=== PATIENT | female | born 1935 | race Caucasian/White ===

== ENCOUNTER 2017-10-24 13:07 | Inpatient (IN) | payer OTHER, MEDICARE ==
[~2017-10-24] VITALS: Ht 172.7 cm; Wt 60.8 kg
--- NOTE | ~2017-10-24 | HC ---
[facility] [place] [address] CONSULTATION Name: LUIS ANTONIO FARIAS Room #: 401-I [facility] IN ..#: [id number] Admission: 10/24/17 Attend Phys: Hailee De Los Santos MD Discharge: 10/27/17 Date of : 33 Report #: [id number] THIS REPORT FOR: //name// CC: Najma De Los Santos REASON FOR CONSULTATION: Left tibial plateau fracture. HISTORY OF PRESENT ILLNESS: The patient is an 82-year-old female who was on a piece of exercise equipment when she got caught and fell and sustained an injury to her left knee. She denied loss of consciousness, reports only left knee pain. REVIEW OF SYSTEMS: MUSCULOSKELETAL: See HPI. NEUROLOGIC: Denies numbness or tingling in her extremities. PAST MEDICAL HISTORY: Essentially negative. ALLERGIES: No known drug allergies. MEDICATIONS: The patient reports none. PAST SURGICAL HISTORY: Cholecystectomy, appendectomy, history of a left ankle fracture, tonsils and adenoids and cataracts. SOCIAL HISTORY: She lives with a female friend, currently does not smoke and no alcohol use. Prior to that, she did not use any ambulatory aids. LABORATORY STUDIES: Done on 10/25/2017 showed white blood cell count 7.4, hemoglobin 12.8, hematocrit 37.8, platelet count 200. INR is 1. Chemistry is grossly normal. On 10/24/2017, she had a vitamin D level, which showed a low vitamin D at 18.6. PHYSICAL EXAMINATION: GENERAL: She is alert and oriented, interacts appropriately. She is well-developed, well-nourished female in no acute distress. She has a normal affect. VITAL SIGNS: Most recent vital signs show temperature of 36.2, heart rate is 88, respiratory rate 15, blood pressure 134/77 and pulse oximetry is 94% on room air. BILATERAL UPPER EXTREMITIES: Skin is clean, dry and intact. She has brisk capillary refill. Sensation is intact to light touch throughout. She is able to make full fist. Full extension, full wrist, forearm, elbow and shoulder functional motion is not full and there is no tenderness to palpation throughout the entire bilateral upper extremities including the sternum and clavicles, [address] [address] CONSULTATION Name: LUIS ANTONIO FARIAS Room #: [address] [place] [address] [place] [facility].#: [id number] Admission: 10/24/17 Attend Phys: Hailee De Los Santos MD Discharge: 10/27/17 Date of : 33 Report #: [id number] shoulders, arms, elbows, forearms, wrists and hands. There is no pain with range of motion. Skin is clean, dry and intact. RIGHT LOWER EXTREMITY: Sensation is intact to light touch throughout. She has brisk capillary refill. EHL, FHL, dorsiflexion and plantar flexion are intact. She has no pain with range of motion of the right hip, knee, ankle or foot. No tenderness to palpation throughout the right thigh, knee, leg, ankle or foot. LEFT LOWER EXTREMITY: Sensation is intact to light touch throughout. She has brisk capillary refill. She has a moderate amount of edema diffusely at the knee with tenderness at the lateral tibial plateau. No significant anterior tenderness. She does have a moderate joint effusion without signs of infection. Skin is clean, dry and intact. She has pain with attempted straight leg raise. There is no pain with hip range of motion or ankle range of motion and no tenderness to the thigh, distal leg, ankle or foot. RADIOGRAPHS: AP, lateral and oblique of the left knee show what appears to be a possibly depressed lateral tibial plateau fracture. IMPRESSION AND PLAN: Left lateral tibial plateau fracture. Continue her in her knee immobilizer. She is to be nonweightbearing on the left lower extremity. We will order a CAT scan to evaluate articular displacement for a possible need for surgery. If this is done, this will most likely be done on Friday. Questions were encouraged and answered to the best of my ability. <ELECTRONICALLY SIGNED> By: Michaela Mccullough MD 11/06/17 1524 1201 1849 Michaela Mccullough MD /nt
--- NOTE | ~2017-10-24 | D ---
[facility] [place] [address] DISCHARGE SUMMARY Name: LUIS ANTONIO FARIAS Óscar Room #: 401-I [facility] IN M.R.#: [id number] Admission: 10/24/17 Attend Phys: Hailee De Los Santos MD Discharge: 10/27/17 Date of : 33 Report #: [id number] THIS REPORT FOR: //name// CC: Najma Enciso Hailee De Los Santos DATE OF SERVICE: 10/27/2017 HISTORY OF PRESENT ILLNESS: The patient is an 82-year-old healthy female with no major medical problems, who fractured her left tibial plateau while she was exercising. Please refer to the admission H and P for details. HOSPITALIZATION COURSE: The patient was hospitalized. She was treated symptomatically. Orthopedic surgeon was consulted. The patient had brace applied. No surgery was performed. Physical therapy was recommended. The patient's hospital stay was uneventful. passenger service manager is involved. Given the fact that the patient needs significant care, she will be transferred to the shelter facility until she is able to go home. Currently, the patient's condition is acceptable as documented in the patient's chart. DISCHARGE DIAGNOSIS: Traumatic left tibial plateau fracture, nondisplaced. Managed conservatively. DISCHARGE MEDICATIONS: Please refer to the medication reconciliation list. FOLLOWUP PLAN: 1. Follow up with orthopedic surgeon as advised. 2. Follow up with primary care physician as planned. DISPOSITION: The patient is discharged to the shelter facility. <ELECTRONICALLY SIGNED> By: Hailee De Los Santos MD 10/27/17 1906 1201 1242 Hailee De Los Santos MD /nt
--- NOTE | ~2017-10-24 | EKG ---
[address] [address] ELECTROCARDIOGRAM REPORT Name: LUIS ANTONIO FARIAS Room #: 401-I ADM IN .R.#: [id number] Admission: 10/24/17 Attend Phys: Hailee De Los Santos MD Discharge: Date of : 33 Report #: [id number] THIS REPORT FOR: //name// [facility] ED Test Date: 2017-10-24 Test Time: 16:03:38 Pat Name: LUIS ANTONIO FARIAS Department: Room: [facility] Gender: F Anthropology Department Chair: scott : 1935 Requested By: Brad Nettles Order Number: [id number] MD: Glenn Morales Measurements Intervals [place] Rate: 84 P: 6 W[place]: 139 QRS: 5 QRSD: 76 T: 32 QT: 397 QTc: 470 Interpretive Statements Sinus rhythm Atrial premature complex Compared to ECG 04/13/2016 04:10:00 Atrial premature complex(es) now present Electronically Signed On 10-26-2017 15:17:37 TRAINING OFFICER by Glenn Morales [email or web address] <ELECTRONICALLY SIGNED> By: Glenn Morales MD, [facility] 10/26/17 1517 1603 160 Glenn Morales MD, [facility] /EPI
[~2017-10-24 13:07] MED LIST: AMOXICILLIN 50500 MG PO; CALCIUM 600 +1 EAC1 PO; CARBAMAZEPINE400 M1 PO; GABAPENTIN; KEFLEX500 MG PO; LISINOPRIL; LOVASTATIN; NORCO 10-325 T1 EACH PO; NORCO 5-325 TA1 EACH PO; PERCOCET PO; PREDNISONE 5 MG5 MG PO; TRAMADOL 50 MG50 MG PO; XANAX 0.25 MG0.25 MG PO
[2017-10-24 13:08] VITALS: BP 171/91
[2017-10-24 15:17] LABS: ABSOLUTE NEUTROPHILS 4.3 thou/uL (1.4-8.2); BASOPHILS 0.8 % (0.0-2.0); EOSINOPHILS 0.5 % (0.0-3.0); HEMATOCRIT 39.9 % (37.0-47.0); LYMPHOCYTES 14.7 % (24.0-44.0); MCH 33.6 pg (26.0-34.0); MCHC 35.2 g/dL (28.0-37.0); MCV 95.6 fL (80.0-100.0); MONOCYTES 6.9 % (1.0-8.0); PLATELET COUNT 192 thou/uL (150-400); POLYS 77.1 % (36.0-66.0); RBC 4.17 mil/uL (4.20-5.00); RDW 13.5 % (10.5-14.5); WBC 5.6 thou/uL (4.0-11.0)
[2017-10-24 15:25] LABS: CALCIUM 9.1 mg/dL (8.5-10.1); CREATININE 0.8 mg/dL (0.6-1.0); POTASSIUM 4.6 mmol/L (3.5-5.1)
[2017-10-24 15:41] LABS: APTT 25.8 Seconds (24.5-32.8); PROTIME 10.6 Seconds (9.3-11.4)
[2017-10-24 17:20] VITALS: BP 156/87
[2017-10-24 18:02] VITALS: BP 132/80
[2017-10-24 20:09] VITALS: BP 100/557; BP 100/57
[2017-10-25] VITALS: BP 124/79
[2017-10-25 04:00] VITALS: BP 145/85
[2017-10-25 06:27] LABS: ABSOLUTE NEUTROPHILS 5.2 thou/uL (1.4-8.2); BASOPHILS 0.7 % (0.0-2.0); HEMATOCRIT 37.8 % (37.0-47.0); HEMOGLOBIN 12.8 gm/dL (12.0-15.0); LYMPHOCYTES 17.7 % (24.0-44.0); MCH 32.6 pg (26.0-34.0); MONOCYTES 11.1 % (1.0-8.0); PLATELET COUNT 200 thou/uL (150-400); POLYS 69.5 % (36.0-66.0); RBC 3.94 mil/uL (4.20-5.00); RDW 14.1 % (10.5-14.5); WBC 7.4 thou/uL (4.0-11.0)
[2017-10-25 06:44] LABS: CALCIUM 8.8 mg/dL (8.5-10.1); CREATININE 0.7 mg/dL (0.6-1.0); POTASSIUM 3.9 mmol/L (3.5-5.1)
[2017-10-25 07:18] VITALS: BP 134/77
[2017-10-25 15:52] VITALS: BP 105/74
[2017-10-25 18:55] VITALS: BP 99/50
[2017-10-25 19:00] VITALS: BP 91/52
[2017-10-26 03:20] VITALS: BP 112/70
[2017-10-26 03:44] LABS: HEMATOCRIT 35.2 % (37.0-47.0); HEMOGLOBIN 11.9 gm/dL (12.0-15.0); MCH 32.9 pg (26.0-34.0); MCHC 33.7 g/dL (28.0-37.0); MCV 97.7 fL (80.0-100.0); RBC 3.6 mil/uL (4.20-5.00); RDW 14.4 % (10.5-14.5); WBC 6.6 thou/uL (4.0-11.0)
[2017-10-26 04:00] LABS: ALBUMIN 2.9 g/dL (3.4-5.0); CALCIUM 8.4 mg/dL (8.5-10.1); CREATININE 0.8 mg/dL (0.6-1.0); POTASSIUM 3.8 mmol/L (3.5-5.1); TOTAL BILIRUBIN 0.9 mg/dL (<0.1-1.0); TOTAL PROTEIN 5.7 g/dL (6.4-8.2)
[2017-10-26 07:08] VITALS: BP 103/67
[2017-10-26 16:32] VITALS: BP 121/80
[2017-10-26 18:55] VITALS: BP 110/62
[2017-10-27 04:00] VITALS: BP 115/70
[2017-10-27 07:13] VITALS: BP 143/81
[2017-10-27] MEDS ORDERED: HYDROCODON-ACE1 EAC7 PO (12:04)
[2017-10-27 15:16] VITALS: BP 144/84
== END 2017-10-27 18:19 | DRG 562 ==
LOC: ER 13:07 → EROBS 15:30 → 4N 15:30
PROVIDERS: Hospitalist; Nurse Practitioner; Physician Assistant
PROC: 2W3PX1Z Immobilization of Left Upper Leg using Splint (ICD-10-PCS; principal; 2017-10-24)
DX: S82.145A Nondisplaced bicondylar fracture of left tibia, initial encounter for closed fracture (principal); E43 Unspecified severe protein-calorie malnutrition; X58.XXXA Exposure to other specified factors, initial encounter; W19.XXXA Unspecified fall, initial encounter; Z90.49 Acquired absence of other specified parts of digestive tract; Y93.89 Activity, other specified; Y92.89 Other specified places as the place of occurrence of the external cause; Y99.8 Other external cause status; Z98.49 Cataract extraction status, unspecified eye
CPT/HCPCS: 10091

== ENCOUNTER 2017-12-13 13:42 | Inpatient (IN) | payer OTHER, MEDICARE ==
[~2017-12-13] VITALS: Ht 172.7 cm; Wt 72.6 kg
--- NOTE | ~2017-12-13 | EKG ---
[address] [address] ELECTROCARDIOGRAM REPORT Name: JARRETTLUIS ANTONIO Óscar Room #: 431- ADM IN M.R.#: [id number] Admission: 12/13/17 Attend Phys: Lane Salazar DO Discharge: Date of : 33 Report #: [id number] THIS REPORT FOR: //name// [facility] ED Test Date: 2017-12-13 Test Time: 14:39:50 Pat Name: LUIS ANTONIO FARIAS Department: Room: 431 Gender: F Net Wpf Developer: leoncio : 1935 Requested By: Lane Salazar Order Number: [id number] MD: Glenn Morales Measurements Intervals [place] Rate: 88 P: 25 AR: 127 QRS: 18 QRSD: 75 T: 51 QT: 366 QTc: 443 Interpretive Statements Sinus rhythm Artifact in lead(s) II,aVF,V1,V2 Compared to ECG 10/24/2017 16:03:38 Atrial premature complex(es) no longer present Electronically Signed On 12-14-2017 12:59:01 CDT by Glenn Morales [email or web address] <ELECTRONICALLY SIGNED> By: Glenn Morales MD, [facility] 12/14/17 1259 1439 1439 Glenn Morales MD, [facility] /EPI
--- NOTE | ~2017-12-13 | O ---
[facility] [place] [address] OPERATIVE REPORT Name: LUIS ANTONIO FARIAS Óscar Room #: 431-P [facility] IN M.R.#: [id number] Admission: 12/13/17 Attend Phys: Lane Salazar DO Discharge: Date of : 33 Report #: [id number] THIS REPORT FOR: //name// CC: Lane Salazar Najma Hernandezs DATE OF SERVICE: 12/14/2017 PREOPERATIVE DIAGNOSIS: Left hip subtrochanteric fracture. POSTOPERATIVE DIAGNOSIS: Left hip subtrochanteric fracture. PROCEDURE: Left hip intramedullary nail. SURGEON: Shar Alejo MD. WOOL CLASSER: NASREEN Mccloud. ANESTHESIA: General. ESTIMATED BLOOD LOSS: 50 mL. DRAINS: None. TOURNIQUETS: None. COMPLICATIONS: None. DESCRIPTION OF PROCEDURE: The patient brought to the operating room where she was placed under general anesthesia. Once under adequate general anesthesia, she was placed on to the fracture table. She was placed on to the fracture table. A distraction was placed across the fracture and reduction was verified under fluoroscopy. The left hip was then prepped and draped in a sterile manner. A proximal incision approximately 3-4 cm was made with placement of the curved cannulated awl into the greater trochanter. Once in place, a guidewire for the intramedullary screw was then placed and the medium sized trochanteric femoral nail from [employer] was then placed down the shaft of the femur. Subsequently, a 2 cm incision was made for placement of the blade. This was then drilled and reamed for and the blade was then placed. This was a 110 mm blade. Reduction of the fracture was achieved and subsequent locking proximally was achieved with the locking screw and the nail. . We then proceeded with the guide for the transverse locking screw, which was then placed and a 38 mm screw was placed through the distal hole in the intramedullary nail after drilling forth. Fluoroscopy was used to verify the position and fixation of the fractures to be satisfactory. The wound was irrigated copiously and closed with 2-0 Vicryl in subcutaneous tissues and alyssa were used for the skin. Wounds [facility] [address] [place] [address] OPERATIVE REPORT Name: LUIS ANTONIO FARIAS Room #: 431-P ADM IN M.R.#: [id number] Admission: 12/13/17 Attend Phys: Lane Salazar DO Discharge: Date of : 33 Report #: [id number] were dressed with Xeroform, 4 x 4s, and a sterile soft compressive dressing was placed. There was no tourniquet. There were no complications. By: 1043 1107 Shar Alejo MD /nt
--- NOTE | ~2017-12-13 | HC ---
[facility] [place] [address] CONSULTATION Name: JARRETTLUIS ANTONIO Óscar Room #: 431-P [facility] IN M.R.#: [id number] Admission: 12/13/17 Attend Phys: Lane Salazar DO Discharge: Date of : 33 Report #: [id number] THIS REPORT FOR: //name// CC: Lane Salazar Najma Enciso DATE OF SERVICE: 12/13/2017 CHIEF COMPLAINT: Left femur subtrochanteric fracture. HISTORY OF PRESENT ILLNESS: This is an 82-year-old patient who approximately 6-7 weeks ago, was admitted with a proximal tibia fracture, being treated nonoperatively. She apparently fell when she was walking with a walker today injuring her left lower extremity. She was determined in the Emergency Room to have a left hip subtrochanteric fracture and was admitted for management of this. Orthopedics was consulted. Problem list noted to include acute encephalopathy, debilitated, dependent edema, falls, fracture of the left tibial plateau mandibular plane, recurrent falls, history of UTIs and weakness. PAST MEDICAL HISTORY: Significant for a left ankle fracture, history of cholecystectomy, bulging disk, tonsils and adenoids, appendectomy and cataracts. SOCIAL HISTORY: Negative for tobacco or alcohol use. CURRENT MEDICATIONS: Noted on the NOV. LABORATORY STUDIES: Notes an INR of 1.1, a hemoglobin of 13.1. PHYSICAL EXAMINATION: VITAL SIGNS: Notes a temperature of 36.7, blood pressure is 164/76, respiratory rate is 18. EXTREMITIES: Examination of the patient's left lower extremity notes it is shortened and externally rotated. She is palpably tender proximally in the femur. GENERAL APPEARANCE: Notes she is awake, alert and oriented. IMAGING: X-rays note an angulated displaced subtrochanteric fracture, which is oblique in fashion. IMPRESSION: Left proximal femur subtrochanteric fracture. PLAN: At this point, would be to proceed with a left femur, hip intramedullary [facility] [address] [place] [address] CONSULTATION Name: LUIS ANTONIO FARIAS Óscar Room #: 431-P [facility] IN [facility]#: [id number] Admission: 12/13/17 Attend Phys: Lane Salazar DO Discharge: Date of : 33 Report #: [id number] nail. The risks, benefits, alternatives, complications were discussed at length with the patient. We will proceed as planned in the a.m. By: 1552 192 Shar Alejo MD /nt
[~2017-12-13 13:42] MED LIST changes: +HYDROCODON-ACE1 EAC7 PO
[2017-12-13 13:43] VITALS: BP 164/76
[2017-12-13 14:03] LABS: HEMATOCRIT 39.2 % (37.0-47.0); HEMOGLOBIN 13.1 gm/dL (12.0-15.0); MCH 32.5 pg (26.0-34.0); MCHC 33.3 g/dL (28.0-37.0); MCV 97.6 fL (80.0-100.0); RBC 4.02 mil/uL (4.20-5.00); RDW 13.2 % (10.5-14.5); WBC 6.5 thou/uL (4.0-11.0)
[2017-12-13 14:12] LABS: CALCIUM 8.5 mg/dL (8.5-10.1); CREATININE 0.8 mg/dL (0.6-1.0); POTASSIUM 3.6 mmol/L (3.5-5.1)
[2017-12-13 14:17] LABS: ALBUMIN 3.1 g/dL (3.4-5.0); TOTAL BILIRUBIN 0.6 mg/dL (<0.1-1.0); TOTAL PROTEIN 6.1 g/dL (6.4-8.2)
[2017-12-13 14:19] LABS: APTT 23.1 Seconds (24.5-32.8); INR 1.1; PROTIME 10.8 Seconds (9.3-11.4)
[2017-12-13] MEDS ORDERED: ASA5UEC PO (15:04)
[2017-12-13 15:07] VITALS: BP 145/79
[2017-12-13 20:40] VITALS: BP 92/52
[2017-12-14] VITALS (8 sets, daily range): BP systolic 79–156; BP diastolic 48–75
[2017-12-14 03:49] LABS: ABSOLUTE NEUTROPHILS 5.1 thou/uL (1.4-8.2); BASOPHILS 0.8 % (0.0-2.0); EOSINOPHILS 0.8 % (0.0-3.0); LYMPHOCYTES 16.7 % (24.0-44.0); MCH 32.7 pg (26.0-34.0); MCHC 34.1 g/dL (28.0-37.0); MCV 95.9 fL (80.0-100.0); MONOCYTES 8.5 % (1.0-8.0); PLATELET COUNT 178 thou/uL (150-400); POLYS 73.2 % (36.0-66.0); RBC 3.33 mil/uL (4.20-5.00); RDW 13.4 % (10.5-14.5); WBC 6.9 thou/uL (4.0-11.0)
[2017-12-14 03:51] LABS: CALCIUM 8.1 mg/dL (8.5-10.1); CREATININE 0.6 mg/dL (0.6-1.0); POTASSIUM 3.5 mmol/L (3.5-5.1)
[2017-12-14 03:54] LABS: HEMOGLOBIN 10.9 gm/dL (12.0-15.0)
[2017-12-14 04:50] LABS: LARGE PLATELETS OCCASIONAL
[2017-12-15] VITALS (7 sets, daily range): BP systolic 86–121; BP diastolic 46–95
[2017-12-15 07:19] LABS: HEMATOCRIT 25.8 % (37.0-47.0); RBC 2.65 mil/uL (4.20-5.00); WBC 8.5 thou/uL (4.0-11.0)
[2017-12-15 07:40] LABS: HEMOGLOBIN 8.7 gm/dL (12.0-15.0)
[2017-12-16 03:53] VITALS: BP 107/59
[2017-12-16 06:10] LABS: ABSOLUTE NEUTROPHILS 6.3 thou/uL (1.4-8.2); BASOPHILS 0.3 % (0.0-2.0); EOSINOPHILS 0.5 % (0.0-3.0); HEMATOCRIT 22.7 % (37.0-47.0); HEMOGLOBIN 7.9 gm/dL (12.0-15.0); LYMPHOCYTES 11.7 % (24.0-44.0); MCH 33.4 pg (26.0-34.0); MCHC 34.7 g/dL (28.0-37.0); MCV 96.3 fL (80.0-100.0); MONOCYTES 8.7 % (1.0-8.0); PLATELET COUNT 132 thou/uL (150-400); POLYS 78.8 % (36.0-66.0); RBC 2.36 mil/uL (4.20-5.00); RDW 12.9 % (10.5-14.5); WBC 7.9 thou/uL (4.0-11.0)
[2017-12-16 06:29] LABS: CALCIUM 8.1 mg/dL (8.5-10.1); CREATININE 0.6 mg/dL (0.6-1.0); POTASSIUM 3.8 mmol/L (3.5-5.1)
[2017-12-16 07:25] VITALS: BP 91/54
[2017-12-16 16:00] VITALS: BP 122/48
[2017-12-16 20:12] VITALS: BP 93/55
[2017-12-17 05:15] VITALS: BP 137/67; BP 99/51
[2017-12-17 06:57] LABS: % SATURATION 11 % (20-39); IRON 19 ug/dL (50-170); TIBC 172 ug/dL (250-450)
[2017-12-17 07:00] LABS: ALBUMIN 2.1 g/dL (3.4-5.0); CALCIUM 8.4 mg/dL (8.5-10.1); CREATININE 0.7 mg/dL (0.6-1.0); MAGNESIUM 1.8 mg/dL (1.8-2.4); POTASSIUM 3.9 mmol/L (3.5-5.1); TOTAL BILIRUBIN 0.9 mg/dL (<0.1-1.0); TOTAL PROTEIN 5.3 g/dL (6.4-8.2)
[2017-12-17 07:10] VITALS: BP 111/48
[2017-12-17 07:22] LABS: FERRITIN 150 ng/mL (8-252)
[2017-12-17] MEDS ORDERED: HYDROCODON-ACE1 EAC7 PO (08:28)
[2017-12-17] MEDS ORDERED: CYCLOBENZAPRINE5 MG PO (08:29)
[2017-12-17] MEDS ORDERED: XARELTO10 MG PO (15:58)
== END 2017-12-17 19:09 | DRG 480 ==
LOC: ER 13:42 → EROBS 14:45 → 4E 14:45
PROVIDERS: Emergency Medicine; Family Medicine; Orthopaedic Surgery Foot and Ankle Surgery; Registered Nurse
PROC: 0QS706Z Reposition Left Upper Femur with Intramedullary Internal Fixation Device, Open Approach (ICD-10-PCS; principal; 2017-12-14)
DX: S72.22XA Displaced subtrochanteric fracture of left femur, initial encounter for closed fracture (principal); E43 Unspecified severe protein-calorie malnutrition; Z91.81 History of falling; Z90.49 Acquired absence of other specified parts of digestive tract; Z79.899 Other long term (current) drug therapy; Z87.440 Personal history of urinary (tract) infections; D64.9 Anemia, unspecified; R00.0 Tachycardia, unspecified; K59.00 Constipation, unspecified; Z68.24 Body mass index [BMI] 24.0-24.9, adult
CPT/HCPCS: 10084; 50101; 50133; 50386; 50635; 51412; 51538; 51817; 52145; 55445; 56524; 57092; 62110; 62900; 70005

== ENCOUNTER 2020-02-17 19:57 | Inpatient (IN) | payer OTHER, MEDICARE ==
[~2020-02-17] VITALS: Ht 172.7 cm; Wt 69.9 kg
[~2020-02-17 19:57] MED LIST changes: +ASA5UEC PO; +CYCLOBENZAPRINE5 MG PO; +XARELTO10 MG PO
[2020-02-17] MEDS ORDERED: TYLENOL WITH CO1 TA1 PO (20:45)
--- NOTE | 2020-02-17 21:03 | NUR ---
WAITING FOR TRANSPORT
[2020-02-17 21:42] VITALS: BP 174/89
--- NOTE | 2020-02-17 21:44 | NUR ---
CALLED TO GIVE REPORT, NO ANSWER.
--- NOTE | 2020-02-17 21:50 | NUR ---
I CALLED ED TO GET REPORT.
[2020-02-17 22:01] LABS: BASOPHILS 0.6 % (0.0-2.0); EOSINOPHILS 0.7 % (0.0-3.0); HEMATOCRIT 42.3 % (37.0-47.0); LYMPHOCYTES 8.1 % (24.0-44.0); MONOCYTES 6.8 % (1.0-8.0); PLATELET COUNT 205 thou/uL (150-400); POLYS 83.8 % (36.0-66.0); RBC 4.36 mil/uL (4.20-5.00); RDW 14.9 % (10.5-14.5); WBC 8.4 thou/uL (4.0-11.0)
[2020-02-17 22:03] VITALS: BP 156/91
[2020-02-17 22:31] LABS: CALCIUM 8.8 mg/dL (8.5-10.1); POTASSIUM 4.4 mmol/L (3.5-5.1)
[2020-02-17 23:00] VITALS: BP 153/85
--- NOTE | 2020-02-18 04:20 | NUR ---
ADMISSION ASSESSMENT COMPLETED. PT IS ALERT AND ORIENTED.WITH MILD FORGETFULNESS WELL CONFUSION. SHE IS PLEASANT AND COOPEARTIVE. SHE ASKS TO USE THE BEDPAN BUT IS ALSO NOTED TO BE INCONTINENT. SKIN IS INTACT. R KNEE IS TENDER AND WITH SOME MILD EDEMA. ON ROOM AIR.GIVEN HYDROCODONE WITH RELIEF. ORIENTED TO ROOM AND STAFF. CALLS WITH NEEDS.FALL PREC IN PLACE. WILL CONTINUE WITH POC TILL EOS.
[2020-02-18 04:30] VITALS: BP 161/81
[2020-02-18 05:51] LABS: ABSOLUTE NEUTROPHILS 5.3 thou/uL (1.4-8.2); BASOPHILS 0.8 % (0.0-2.0); EOSINOPHILS 2.6 % (0.0-3.0); HEMATOCRIT 41.3 % (37.0-47.0); HEMOGLOBIN 13.7 gm/dL (12.0-15.0); LYMPHOCYTES 12.4 % (24.0-44.0); MCH 32.2 pg (26.0-34.0); MCHC 33.2 g/dL (28.0-37.0); MONOCYTES 7.1 % (1.0-8.0); PLATELET COUNT 184 thou/uL (150-400); POLYS 77.1 % (36.0-66.0); RBC 4.25 mil/uL (4.20-5.00); RDW 14.7 % (10.5-14.5); WBC 6.9 thou/uL (4.0-11.0)
--- NOTE | 2020-02-18 07:24 | NUR ---
ASSUMED CARE OF PATIENT. PLEASANT AND COOPERATIVE WITH CARE. STATES WILL NEED PRN PAIN SOON POSSIBLE. WILL WORK WITH THERAPIES.
[2020-02-18 07:56] VITALS: BP 153/90
--- NOTE | 2020-02-18 09:46 | NUR ---
DR KRUGER ORDERED X-RAY RIGHT FOOT /LOWER EXTREMITY X-RAY HERE TO COMPLETE
--- NOTE | 2020-02-18 10:52 | NUR ---
ASSESSMENT: CM REVIEWED CHART AND MET WITH PATIENT AT THE BEDSIDE. PT IS ALERT AND ORIENTED X4. PT REPORTS THAT SHE LIVES IN AN INDEPENDENT APT AT [facility] AND JUST MOVED IN ABOUT A WEEK AGO. PT REPORTS THAT SHE USES A WHEELCHAIR THERE. PT STATES THAT SHE WAS TO BEING THERAPY THERE WITH [facility] ([employer]). PT REPORTS SHE HAS BEEN TO [facility] IN THE PAST FOR SNF. PT REPORTS SHE DOES NOT WISH TO GO TO SNF AT DISCHARGE AND IS HOPING SHE CAN GO BACK TO [facility] SHE REPORTS SHE IS OPEN TO HH THEY HAVE THERE IF NEEDED. CM CONTACTED [facility] AND CONFIRMED PATIENT IS FROM [place]. [facility] GO[facility] INTO [facility] IF PATIENTS NEED. CM FAXED REFERRAL TO [facility] AND SPOKE WITH MARIA DE [facility]ES[facility] WHO STATES THEY CAN ACCEPT PATIENT FOR HH AT DISCHARGE IF SHE NEEDS IT. PT FELL AND ORTHO IS TO SEE PATIENT. CM WILL CONTINUE TO FOLLOW TO ASSIST NEEDED.
[2020-02-18 13:17] VITALS: BP 153/90
--- NOTE | 2020-02-18 17:28 | NUR ---
PATIENT LEFT UNIT FOR MRI AT THIS TIME. PATIENT HAD X-RAY OF RIGHT FOOT EARLIER.
[2020-02-18 18:15] VITALS: BP 159/80
--- NOTE | 2020-02-18 18:27 | NUR ---
PATIENT BACK FROM MRI WILL HAVE RESULTS TOMMOROW SHE WAS TOLD BY X-RAY TECH. PT IS EATING DINNER. SHE SPOKE WITH MARIA DE JESUS AT [facility] [phone] [facility] CAN NOT TAKE BACK UNTIL FRI OR FRIDAY. SHE STATES SHE HAS NO FAMILY OR GAURDIAN FOR THIS NURSE TO CALL AND REPORT ON.
--- NOTE | 2020-02-18 18:35 | NUR ---
ASSUMED CARE OF PT AT 1830 FROM [facility]. ASSESSMENTS DOCUMENTED. PT IN BED, FALL PRECAUTIONS IN PLACE. WILL CONTINUE TO MONITOR.
[2020-02-18 20:20] VITALS: BP 110/51
--- NOTE | 2020-02-18 23:17 | NUR ---
1900 ASSUMED CARE OF PT AFTER BEDSIDE REPORT 2029 PT RESTING IN BED BASELINE ASSESSMENT COMPLETED STATES PAIN IS BETTER FROM PAIN MED TAKEN BEFORE, EXTERNAL DRY WICK IN PLACE, PEDAL PULSES PALPABLE BILAT CAP REFILL <2 SEC BLE, WILL CONTINUE TO MONITOR, FALL PRECAUTIONS IN PLACE
[2020-02-19 04:30] VITALS: BP 148/86
[2020-02-19 07:26] VITALS: BP 129/62
--- NOTE | 2020-02-19 09:42 | NUR ---
ASSUMED CARE OF PATIENT AT SHIFT CHANGE SHE WAS SLEEPING WAS GIVEN PRN PAIN PILL EARLIER. AT THIS TIME SHE IS AWAKE WATCHING TV NO PAIN OR RESP DISTRESS. DR NIXON HERE TO SEE PATIENT ASKED FOR THIS NURSE TO PUT IN ORDER FOR XAL[employer] EYE GTTS THAT SHE TAKES AT HS ORDER IN AND 1 TIME ORDER FOR THIS AM AND WILL START HS TODAY AT HS. DR MONTOYA CONSULED AND HE TOLD PATIENT NO SURGERY.
[2020-02-19 15:35] VITALS: BP 113/74
--- NOTE | 2020-02-19 17:25 | NUR ---
THIS NURSE AND PATIENT CALLED [facility] AT [phone] TO INQUIRE ABOUT HER CAT BEING FEED. EMPLOYEE CYNDI STATED SHE WOULD HOLLY FEED WATER AND CLEAN LITTER BOX FOR PATIENTS CAT. WILL LET CASE MANAGEMENT KNOW TO SET UP TRANSPORTATION FOR FRIDAY. 02/21/20.
[2020-02-19 19:47] VITALS: BP 116/63
--- NOTE | 2020-02-20 00:59 | NUR ---
ASSUMED PT CARE AT 1900. PT REPORTS PAIN IN HER BACK THAT IS MANAGED WITH PO PAIN MEDS. PT GOT HER EYE DROPS THIS EVENING. FEMALE CATHETER IS IN PLACE WITH GOOD OUTPUT. CYNDI FROM [facility] CALLED AND GAVE PATIENT AN UPDATE ON THE CAT, PT WAS VERY HAPPY. NO FUTHER COMPLAINTS AT THIS TIME. PT IS CURRENTLY RESTING IN BED WITH EYES CLOSED.
[2020-02-20 05:15] VITALS: BP 109/72
[2020-02-20 07:35] VITALS: BP 139/79
--- NOTE | 2020-02-20 11:53 | NUR ---
ASSUMED CARE OF THE PT AT 0700. PT HAS EXTERNAL CATHETER AND IS INCONTINENT. NO C/O PAIN. R HAND SALINE LOCKED, DRY AND INTACT. FALL PRECAUTIONS IN PLACE. PT WILL D/C BACK TO [facility] AND WILL HAVE HH AT THE FACILITY FROM [facility] . BED IN THE LOWEST POSITION AND CALL LIGHT IS WITHIN REACH. WILL CONTINUE TO MONITOR THE PT.
[2020-02-20] MEDS ORDERED: NORCO 5-325 TA1 EAC1 PO (13:48)
== END 2020-02-20 14:18 | disposition home health service (06) | DRG 563 ==
LOC: ER 19:57 → 4S 21:30 → EROBS 21:30 → 4S 22:05
PROVIDERS: Emergency Medicine; Nurse Practitioner Family; ADMIT Internal Medicine; ATTEND Internal Medicine
DX: S82.144A Nondisplaced bicondylar fracture of right tibia, initial encounter for closed fracture (principal); R68.84 Jaw pain; G89.29 Other chronic pain; G50.0 Trigeminal neuralgia; M81.0 Age-related osteoporosis without current pathological fracture; G47.00 Insomnia, unspecified; R32 Unspecified urinary incontinence; M25.461 Effusion, right knee; W18.39XA Other fall on same level, initial encounter; Z90.49 Acquired absence of other specified parts of digestive tract; Z87.891 Personal history of nicotine dependence; Y93.89 Activity, other specified; Y92.091 Bathroom in other non-institutional residence as the place of occurrence of the external cause; Y99.8 Other external cause status
CPT/HCPCS: 10195

== ENCOUNTER → 2020-12-26 | Outpatient (CLI) | payer OTHER, MEDICARE ==
[~2020-12-26] MED LIST changes: +CARBAMAZEPINE200 M2 PO; +LATANOPROST 0.2.5 ML OPHTHALMIC; +NORCO 5-325 TA1 EAC1 PO; +SERTRALINE HCL100 MG PO; +TYLENOL WITH CO1 TA1 PO
== END ==
LOC: LAB 11:36
PROVIDERS: Student in an Organized Health Care Education/Training Program; ATTEND Ophthalmology
DX: Z01.812 Encounter for preprocedural laboratory examination (principal); Z20.822 Contact with and (suspected) exposure to COVID-19

== ENCOUNTER 2021-02-14 10:13 | Inpatient (IN) | payer OTHER, MEDICARE ==
[~2021-02-14] VITALS: Ht 172.7 cm; Wt 84.4 kg
--- NOTE | ~2021-02-14 | EMS ---
[address] [address] EMS Patient Care Report Name: LUIS ANTONIO FARIAS Room #: 453-P ADM IN M.R.#: [id number] Admission: 02/14/21 Attend Phys: Katty Nunez MD Discharge: Date of : 33 Report #: [id number] THIS REPORT FOR: //name// Report Transmitted: 02/15/2021 06:41 EMS Care Summary [place], [place]/[facility] Incident [id number] @ 02/14/2021 09:39 Incident Location [id number] [place] [address] 230 Patient LUIS ANTONIO FARIAS Female, 85 Years 1935 Patient Address [id number] [place] [address] [address] [place] [address] Patient History Depression, Patient Allergies No known allergies, Patient Medications Seroquel, Chief Complaint GERNERALIZED WEAKNESS Disposition Transported No Lights/[place] Dispatch Reason Sick Person Transported To [facility] Narrative RESPONDED TO SENIOR CARE TO FIND PT SITTING ON THE COUCH. IT WAS REPORTED BY SENIOR CARE STAFF THE PT HAD BEEN SITTING ON THE COUCH ALL NIGHT, WAS UNABLE TO STAND UP/WALK, ALONG WITH HAVING A SUSPECTED UTI. VITALS WERE TAKEN. PT WAS [address] [address] EMS Patient Care Report Name: LUIS ANTONIO FARIAS Room #: 453-P ADM IN [place].#: [id number] Admission: 02/14/21 Attend Phys: Katty Nunez MD Discharge: Date of : 33 Report #: [id number] ASSISTED TO THE COT BY EMS AND SEAT BELTS WERE APPLIED TO PT. PT WAS THEN TRANSPORTED TO [facility] WITHOUT ANY CHANGES. PT WAS TEAM LIFTED FROM COT TO THE HOSPITAL BED WHERE THE RAILS WERE RAISED. REPORT TAKEN BY NURSE. Initial Vitals @10:03P: 92,R: 14,BP: 151/82,Pain: 0/10,GCS: 15,Glucose: 106,CO: 4,SpO2: 94,Revised Trauma: 12, @10:09P: 87,R: 14,BP: 127/84,Pain: 0/10,GCS: 15,CO: 3,SpO2: 95,Revised Trauma: 12, Assessments @09:57MENTAL:Person Oriented,Time Oriented,Place Oriented,Event Oriented,SKIN:HEENT:Head/Face: No Abnormalities,Neck/Airway: No Abnormalities,LUNG SOUNDS:General: No Abnormalities,Left Upper: No Abnormalities,Right Upper: No Abnormalities,Left Lower: No Abnormalities,Right Lower: No Abnormalities,ABDOMEN:General: No Abnormalities,Left Upper: No Abnormalities,Right Upper: No Abnormalities,Left Lower: No Abnormalities,Right Lower: No Abnormalities,PELVIS//GI:Incontinence,EXTREMITIES:Left Arm: Weakness,Right Arm: Weakness,Left Leg: Weakness,Right Leg: Weakness,Capillary Refill: Right Upper: < 2 Sec,PULSE:Radial: 2+ Normal,NEURO:No Abnormalities, Impression Generalized Weakness Procedures @09:57BLS AssessmentResponse: Unchanged Timeline 09:37,Call Received 09:37,Dispatch Notified 09:39,Dispatched 09:39,En Route 09:51,On Scene 09:57,At Patient 09:57,BLS Assessment,Response: Unchanged 10:03,BP: 151/82 M,PULSE: 92,RR: 14 R,SPO2: 94 Ox,ETCO2: ,B,PAIN: 0,GCS: 15, 10:04,Depart Scene 10:09,BP: 127/84 M,PULSE: 87,RR: 14 R,SPO2: 95 Ox,ETCO2: ,BG: ,PAIN: 0,GCS: 15, 10:11,At Destination 10:23,Call Closed Disclaimer v1.1 Copyright 2020 [employer] This EMS Care Summary contains data elements from the applicable legal record (which may be displayed differently). It is designed to provide pertinent [facility] [address] [place] [address] EMS Patient Care Report Name: LUIS ANTONIO FARIAS Room #: 453-P [facility] IN .R.#: [id number] Admission: 02/14/21 Attend Phys: Katty Nunez MD Discharge: Date of : 33 Report #: [id number] information for the following purposes: continuity of care, clinical quality, and state data reporting. The complete legal record is available to ED staff and administrators of the receiving hospital in [employer]'s Patient Tracker. All data is provided "as is."
[~2021-02-14 10:13] MED LIST changes: -CARBAMAZEPINE200 M2 PO; +CARBAMAZEPINE200 M6 PO
[2021-02-14 10:14] VITALS: BP 139/82
--- NOTE | 2021-02-14 10:15 | NUR ---
[facility], [facility]DEPENDENT
[2021-02-14 11:18] LABS: URINE BILIRUBIN NEGATIVE (Negative); URINE BLOOD 2+ (Negative); URINE CLARITY SL CLOUDY; URINE COLOR YELLOW; URINE GLUCOSE-RANDOM* NEGATIVE (Negative); URINE KETONES NEGATIVE (Negative); URINE LEUKOCYTES-REFLEX 2+ (Negative); URINE NITRITE-REFLEX POSITIVE (Negative); URINE PROTEIN (DIPSTICK) NEGATIVE (Negative); URINE SPECIFIC GRAVITY 1.025 (1.005-1.035); URINE UROBILINOGEN 0.2 E.U./dl (0.2-1.0)
[2021-02-14 11:33] LABS: CRYSTALS None Seen /LPF (None Seen); HYALINE CASTS 0-3 Few /LPF (None Seen); SQUAMOUS 0-3 Few /LPF (0-3)
[2021-02-14 11:35] LABS: BACTERIA-REFLEX >30 Many /HPF (None Seen); URINE RBC 1-2 Rare /HPF (NONE SEEN); URINE WBC-REFLEX 0-5 Rare /HPF (0-5)
[2021-02-14 11:43] LABS: ABSOLUTE NEUTROPHILS 3.2 thou/uL (1.4-8.2); BASOPHILS 1.2 % (0.0-2.0); HEMATOCRIT 39.2 % (37.0-47.0); LYMPHOCYTES 16.2 % (24.0-44.0); MCH 31.4 pg (26.0-34.0); MCHC 33.1 g/dL (28.0-37.0); MCV 94.9 fL (80.0-100.0); MONOCYTES 8.7 % (1.0-8.0); PLATELET COUNT 190 thou/uL (150-400); POLYS 72.9 % (36.0-66.0); RBC 4.13 mil/uL (4.20-5.00); RDW 13.9 % (10.5-14.5); WBC 4.4 thou/uL (4.0-11.0)
[2021-02-14 11:54] LABS: ANION GAP 6 mmol/L (7-16); BUN 15 mg/dL (7-18); CALCIUM 8.5 mg/dL (8.5-10.1); CHLORIDE 104 mmol/L (98-107); CO2 30 mmol/L (21-32); CREATININE 0.9 mg/dL (0.6-1.0); GLUCOSE 109 mg/dL (74-106); SODIUM 140 mmol/L (136-145)
[2021-02-14 12:04] LABS: ALBUMIN 3.4 g/dL (3.4-5.0); PHOSPHORUS 3.6 mg/dL (2.6-4.7); SGOT 17 U/L (15-37); SGPT 15 U/L (14-59); TOTAL BILIRUBIN 0.4 mg/dL (0.2-1.0); TOTAL PROTEIN 6.9 g/dL (6.4-8.2); TROPONIN-I <0.06 ng/mL (<0.06)
--- NOTE | 2021-02-14 12:10 | EKG ---
[address] [place] [address] ELECTROCARDIOGRAM REPORT Name: LUIS ANTONIO FARIAS Óscar Room #: [facility]#: [id number] Admission: 02/14/21 Attend Phys: Discharge: Date of : 33 Report #: [id number] [facility] ED Test Date: 2021-02-14 Test Time: 11:23:13 Pat Name: LUIS ANTONIO FARIAS Department: Room: Gender: F [employer]: KF : 1935 Requested By: Chepe Grant Order Number: [id number] MD: Bashir Greene Measurements Intervals [place] Rate: 78 P: 35 [place]: 132 QRS: 28 QRSD: 83 T: 44 QT: 391 QTc: 446 Interpretive Statements Sinus rhythm Probable left atrial enlargement Compared to ECG 12/13/2017 14:39:50 No significant changes Electronically Signed On 02-14-2021 12:10:10 CDT by Bashir Greene [email or web address] <ELECTRONICALLY SIGNED> By: Bashir Greene MD, [facility] 02/14/21 1210 1123 1123 Bashir Greene MD, [facility] /EPI
[2021-02-14 16:46] VITALS: BP 133/91
[2021-02-14 17:05] VITALS: BP 112/91
[2021-02-14 17:25] VITALS: BP 174/93
[2021-02-14 18:00] VITALS: BP 154/65
--- NOTE | 2021-02-14 18:13 | NUR ---
ADMISSION NOTE: PT ADMITTED ON 453, ALERT AND ORIENTED X4, DENIES ANY PAIN, NAUSEA AND VOMITTING. ON ROOM AIR, NO SIGNS OF DISTRESS NOTED. LAY FROM ER IN PLACE, SECURED AND PATENT. STAINED GLASS GLAZIER PLACED ON PT, SR. PT BP WAS HIGH, DR. YEE MADE AWARE. ASSESSMENT AND ADMISSION COMPLETED. PT IS WHEELCHAIR BOUND. FALL PRECAUTIONS IN PLACE. DENIES ANYNEEDS AT MOMENT. WILL CONTINUE TO MONITOR.
[2021-02-14 19:26] VITALS: BP 169/83
[2021-02-15 07:36] LABS: ABSOLUTE NEUTROPHILS 3.4 thou/uL (1.4-8.2); BASOPHILS 0.2 % (0.0-2.0); EOSINOPHILS 2.5 % (0.0-3.0); HEMATOCRIT 38.5 % (37.0-47.0); HEMOGLOBIN 12.6 gm/dL (12.0-15.0); MCH 31.3 pg (26.0-34.0); MCHC 32.8 g/dL (28.0-37.0); MCV 95.5 fL (80.0-100.0); MONOCYTES 9.2 % (1.0-8.0); PLATELET COUNT 179 thou/uL (150-400); POLYS 66.1 % (36.0-66.0); RBC 4.04 mil/uL (4.20-5.00); WBC 5.2 thou/uL (4.0-11.0)
[2021-02-15 07:52] VITALS: BP 137/72
--- NOTE | 2021-02-15 07:52 | NUR ---
RECEIVED CARE OF THIS PATIENT AT 1900. PATIENT ALERT AND ORIENTED X4 WITH PERIODS OF CONFUSION AND FORGETFULNESS. NEEDS REMINDING THAT SHE HAS A LAY AND DOES NOT NEED TO GET UP AND GO TO THE BATHROOM. DENIES PAIN. SLEPT MOST OF NIGHT.
[2021-02-15 07:53] LABS: ALBUMIN 3.1 g/dL (3.4-5.0); CALCIUM 8.2 mg/dL (8.5-10.1); CREATININE 0.9 mg/dL (0.6-1.0); POTASSIUM 4.4 mmol/L (3.5-5.1); TOTAL BILIRUBIN 0.5 mg/dL (0.2-1.0); TOTAL PROTEIN 6.3 g/dL (6.4-8.2)
--- NOTE | 2021-02-15 14:15 | NUR ---
PT ADMITTED RELATED TO WEAKNESS, UTI. CM REVIEWED CHART AND SPOKE WITH CARE TEAM. CM MET WITH PT AT BEDSIDE THIS DAY. PT APPEARED TO BE A&O X4. CM ROLE INTRODUCED. PT INDICATED SHE LIVES AT [facility] AND HAD USED A WC TO ASSIST WITH MOBILITY PULMONARY FUNCTION TECHNOLOGIST. PT INDICATED SHE HAD OP THERAPY THROUGH [facility] IN THE PAST AT [facility] AND THAT SHE HOPES TO BE ABLE TO RETURN HOME WIHT MERGED WITH [facility] ONCE MEDICALLY STABLE. THERAPY INDICATED THAT PT ISN'T AT BASELINE FOR TRANSFERS AND THAT SHE MAY BENEFIT FROM SHORT TERM POST ACUTE CARE STAY. PT INDICATED SHE WASN'T INTERESTED IN THAT. CM FOLLOWING REGARDING DC PLANNING. CM CALLED AND SPOKE WITH PT'S FRIEND GREG INGRAM.
[2021-02-15 15:17] VITALS: BP 111/56
[2021-02-15 19:12] VITALS: BP 130/62
--- NOTE | 2021-02-15 19:49 | NUR ---
Assumed pt care this am vs stable. Pt was able to work with PT and was able to pivot from bed to the commode. As per the pt, she is better in transferring in her facility since all her furniture is theright size and ruel, she uses her wc to get around. POC followed with no signs or verbalizations of distres noted. FC in place, endorsed to the night nurse.
--- NOTE | 2021-02-16 04:47 | NUR ---
ASSUMED CARE OF PT AT SHIFT CHANGE. PT IS AOX3-4 AND LETS NEEDS BE KNOWN. FALL PRECAUTION IN PLACE. PT DENIED PAIN, NAUSEA OR SOA. ASSESSMENT CHARTED. LAY IN PLACE AND PATIENT. PT RAN SR ON TELE. PT WAS ABLE OT GET COMFORTABLE AND SLEEP PART OF THE SHIFT. VSS AND NO S/S OF ACUTE DISTRESS. WILL CONTINUE TO MONITOR.
[2021-02-16 08:15] VITALS: BP 135/77
[2021-02-16 11:04] VITALS: BP 135/77
[2021-02-16] MEDS ORDERED: KEFLEX250 MG PO (11:49)
--- NOTE | 2021-02-16 11:53 | NUR ---
FAXED REFERRAL TO [facility]. CONFIRMED WITH MARCO/INTAKE THAT THEY RECEIVED. WILL FAX DISCHARGE ORDERS/SUMMARY WHEN COMPLETED. WILL FAX DISCHARGE ORDERS/SUMMARY TO [facility], ATTENTION CAT WHEN COMPLETED. [facility] P [phone]; FAX [phone] [facility] P [phone]; FAX [phone]
--- NOTE | 2021-02-16 12:32 | NUR ---
CARE TEAM INDICATED THAT PT IS MEDICALLY STABLE TO DC THIS DAY. PT ISN'T AGREEABLE TO SHORT TERM POST ACUTE CARE STAY. [facility]. CM MET WITH PT AT SHE INDICATED SHE NEEDS TRANSPORT HOME THIS DAY. CM ARRANGED [facility] FOR [phone] BANKING SERVICES ADVISOR. ORDERS FAXED TO [facility] PER HER REQUEST.. NO OTHER CM INTERVETNION INDICATED. CASE CLSOSED.
--- NOTE | 2021-02-16 14:04 | NUR ---
Assumed pt care this am, vs stable . Pt had a bm and full bed bath given. POC followed with no signs or verbalizations of distress noted. DC instructions given to the pt. IV removed. Concern raised by pt not being able to get her meds that were sent to the pharmacy, no one could take her at this time. CM informed .
== END 2021-02-16 15:14 | disposition home health service (06) | DRG 690 ==
LOC: ER 10:13 → 4W 13:25 → EROBS 13:25 → 4W 17:09
PROVIDERS: Emergency Medicine; ADMIT Internal Medicine; ATTEND Internal Medicine
PROC: 0T9B70Z Drainage of Bladder with Drainage Device, Via Natural or Artificial Opening (ICD-10-PCS; principal; 2021-02-14)
DX: N30.01 Acute cystitis with hematuria (principal); F32.9 Major depressive disorder, single episode, unspecified; G89.29 Other chronic pain; G50.0 Trigeminal neuralgia; R53.81 Other malaise; R33.9 Retention of urine, unspecified; G47.00 Insomnia, unspecified; Z90.49 Acquired absence of other specified parts of digestive tract; Z98.42 Cataract extraction status, left eye; Z98.41 Cataract extraction status, right eye; Z83.6 Family history of other diseases of the respiratory system; Z99.3 Dependence on wheelchair
CPT/HCPCS: 10045

== ENCOUNTER 2021-04-27 11:06 | Inpatient (IN) | payer OTHER, MEDICARE ==
[~2021-04-27] VITALS: Ht 172.7 cm; Wt 84.0 kg
--- NOTE | ~2021-04-27 | EMS ---
[address] [address] EMS Patient Care Report Name: LUIS ANTONIO FARIAS Room #: 436-P [facility] IN ..#: [id number] Admission: 04/27/21 Attend Phys: Elmo Garcia MD Discharge: 04/30/21 Date of : 31 Report #: [id number] THIS REPORT FOR: //name// Report Transmitted: 05/01/2021 11:04 EMS Care Summary [place], [place]/[facility] Incident [id number] @ 04/27/2021 10:35 Incident Location [address] [facility] 230 Patient LUIS ANTONIO FARIAS Female, 86 Years 1935 Patient Address [id number] [place] [address] [address] [place] [address] Patient History Depression, Patient Allergies No known allergies, Patient Medications Seroquel, Chief Complaint LEFT LOWER LEG PAIN Disposition Transported No Lights/[place] Dispatch Reason Sick Person Transported To [facility] Narrative SCENE: ON ARRIVAL PT FOUND LYING IN BED IN BEDROOM AT ADDRESS PROVIDED. PT IS AWAKE AND ALERT WITH A GCS OF 15. PT C/O LEFT LOWER LEG PAIN. PT REPORTS YESTERDAY AT 12 SHE SUSTAINED A FALL IN HER SHOWER. PT DENIES STRIKING HER HEAD [address] [address] EMS Patient Care Report Name: LUIS ANTONIO FARIAS Room #: 436-P [facility] IN [place]#: [id number] Admission: 04/27/21 Attend Phys: Elmo Garcia MD Discharge: 04/30/21 Date of : 31 Report #: [id number] AND DENIES LOC. PT DENIES TAKING BLOOD THINNERS. PT REPORTS THE FD WAS CALLED AND ASSISTED HER INTO HER BED, WHERE SHE HAS BEEN UNABLE TO GET UP EVER SINCE, DUE TO PAIN IN HER LEFT LOWER LEG. PT HAS NO OBVIOUS INJURIES TO THE LOCATION. P ASSISTED ONTO EMS STRETCHER. PT REQUESTS TRANSPRT TO [facility] ER. AMBULANCE: VITALS MONITORED. NO CHANGES Initial Vitals @10:54P: 78,R: 14,BP: 122/65,Pain: 2/10,GCS: 15,SpO2: 93,Revised Trauma: 12, @10:56P: 80,R: 16,BP: 115/75,GCS: 15,SpO2: 93,Revised Trauma: 12, Assessments @10:41MENTAL:No Abnormalities,SKIN:No Abnormalities,HEENT:Head/Face: No Abnormalities,Eyes: No Abnormalities,Neck/Airway: No Abnormalities,LUNG SOUNDS:General: No Abnormalities,Left Upper: No Abnormalities,Right Upper: No Abnormalities,Left Lower: No Abnormalities,Right Lower: No Abnormalities,ABDOMEN:General: No Abnormalities,Left Upper: No Abnormalities,Right Upper: No Abnormalities,Left Lower: No Abnormalities,Right Lower: No Abnormalities,PELVIS//GI:No Abnormalities,EXTREMITIES:Left Leg: Other,Left Arm: No Abnormalities,Right Arm: No Abnormalities,Right Leg: No Abnormalities,PULSE:NEURO:No Abnormalities,@10:57MENTAL:No Abnormalities,SKIN:No Abnormalities,HEENT:Head/Face: No Abnormalities,Eyes: No Abnormalities,Neck/Airway: No Abnormalities,LUNG SOUNDS:General: No Abnormalities,Left Upper: No Abnormalities,Right Upper: No Abnormalities,Left Lower: No Abnormalities,Right Lower: No Abnormalities,ABDOMEN:General: No Abnormalities,Left Upper: No Abnormalities,Right Upper: No Abnormalities,Left Lower: No Abnormalities,Right Lower: No Abnormalities,PELVIS//GI:No Abnormalities,EXTREMITIES:Left Leg: Other,Left Arm: No Abnormalities,Right Arm: No Abnormalities,Right Leg: No Abnormalities,PULSE:NEURO:No Abnormalities, Impression Extremity Pain Procedures @10:41ALS AssessmentResponse: UnchangedSucceeded@10:47StretcherResponse: Unchanged Timeline 10:30,Call Received 10:30,Dispatch Notified 10:35,Dispatched 10:35,En Route 10:38,On Scene 10:41,At Patient 10:41,ALS Assessment,Response: UnchangedSucceeded, 10:47,Stretcher,Response: [place] [address] EMS Patient Care Report Name: LUIS ANTONIO FARIAS Room #: 436-P [facility]#: [id number] Admission: 04/27/21 Attend Phys: Elmo Garcia MD Discharge: 04/30/21 Date of : 31 Report #: [id number] 10:53,Depart Scene 10:54,BP: 122/65 M,PULSE: 78,RR: 14 R,SPO2: 93 Ox,ETCO2: ,BG: ,PAIN: 2,GCS: 15, 10:56,BP: 115/75 M,PULSE: 80,RR: 16 R,SPO2: 93 Ox,ETCO2: ,BG: ,PAIN: ,GCS: 15, 11:00,At Destination 11:16,Call Closed Disclaimer v1.1 Copyright 2020 [employer] This EMS Care Summary contains data elements from the applicable legal record (which may be displayed differently). It is designed to provide pertinent information for the following purposes: continuity of care, clinical quality, and state data reporting. The complete legal record is available to ED staff and administrators of the receiving hospital in [employer]'s Patient Tracker. All data is provided "as is."
[~2021-04-27 11:06] MED LIST changes: +KEFLEX250 MG PO
[2021-04-27 11:07] VITALS: BP 156/85
[2021-04-27 11:24] LABS: URINE BILIRUBIN NEGATIVE (Negative); URINE BLOOD TRACE (Negative); URINE CLARITY CLOUDY; URINE GLUCOSE-RANDOM* NEGATIVE (Negative); URINE KETONES NEGATIVE (Negative); URINE NITRITE-REFLEX NEGATIVE (Negative); URINE PROTEIN (DIPSTICK) 2+ (Negative); URINE SPECIFIC GRAVITY >= 1.030 (1.005-1.035); URINE UROBILINOGEN 0.2 E.U./dl (0.2-1.0)
[2021-04-27 11:30] LABS: HEMATOCRIT 39.8 % (37.0-47.0); HEMOGLOBIN 13.3 gm/dL (12.0-15.0); MCH 32.2 pg (26.0-34.0); MCHC 33.5 g/dL (28.0-37.0); MCV 96.1 fL (80.0-100.0); RBC 4.14 mil/uL (4.20-5.00); RDW 14.5 % (10.5-14.5); WBC 8.2 thou/uL (4.0-11.0)
[2021-04-27 11:36] LABS: CALCIUM 8.4 mg/dL (8.5-10.1)
[2021-04-27 11:40] LABS: URINE LEUKOCYTES-REFLEX 2+ (Negative)
[2021-04-27 11:41] LABS: BACTERIA-REFLEX >30 Many /HPF (None Seen); CASTS None Seen /LPF (None Seen); CRYSTALS None Seen /LPF (None Seen); SQUAMOUS >10 Many /LPF (0-3); URINE RBC None Seen /HPF (NONE SEEN); URINE WBC-REFLEX 6-15 Few /HPF (0-5)
[2021-04-27 11:42] LABS: ALBUMIN 3.3 g/dL (3.4-5.0); TOTAL BILIRUBIN 0.8 mg/dL (0.2-1.0); TOTAL PROTEIN 6.8 g/dL (6.4-8.2)
[2021-04-27 12:36] VITALS: BP 117/78
[2021-04-27 12:40] VITALS: BP 136/66
[2021-04-27 13:08] VITALS: BP 139/90
[2021-04-27] MEDS ORDERED: FUROSEMIDE 20 M20 MG PO (13:37)
--- NOTE | 2021-04-27 14:08 | NUR ---
ASSUMED PT CARE AT 1300 FROM ED. PT IS ALERT & ORIENTED X4. PT HAS IV SITE ON R AC SALINE LOCKED. PT IS FROM [facility] AND FELL YESTERDAY IN THE SHOWER. FINISHED ADMISSION TODAY. PT C/O OF PAIN AND GIVEN PAIN MEDICATION PER PT REQUEST. PT HAS L KNEE IMMOBILIZER AND TARA WRAP. PT IS ON ROOM AIR. PT ON THE BED, BED ON THE LOWEST POSITIO, SIDE RAILS UP, CALL LIGHT WITHIN REACH. WILL CONTINUE TO MONITOR PT. FOLLOW POC.
--- NOTE | 2021-04-27 15:20 | EKG ---
[address] [address] ELECTROCARDIOGRAM REPORT Name: LUIS ANTONIO FARIAS Room #: 436- ADM IN .R.#: [id number] Admission: 04/27/21 Attend Phys: Elmo Garcia MD Discharge: Date of : 31 Report #: [id number] [facility] ED Test Date: 2021-04-27 Test Time: 11:06:27 Pat Name: LUIS ANTONIO FARIAS Department: Room: 436 P Gender: F Fisher Eel: : 1935 Requested By: Elmo Garcia Order Number: [id number] : Bashir Greene Measurements Intervals [place] Rate: 81 P: 17 [place]: 148 QRS: 28 QRSD: 67 T: 49 QT: 376 QTc: 437 Interpretive Statements Sinus rhythm Probable left atrial enlargement Low voltage, precordial leads Baseline wander in lead(s) V5 Compared to ECG 02/14/2021 11:23:13 Low QRS voltage now present Electronically Signed On 04-27-2021 15:20:06 CDT by Bashir Greene [email or web address] <ELECTRONICALLY SIGNED> By: Bashir Greene MD, [facility] 04/27/21 1520 1106 1106 Bashir Greene MD, [facility] /EPI
[2021-04-27 15:50] VITALS: BP 108/65
--- NOTE | 2021-04-27 16:13 | NUR ---
PT ADMITTED RELATED TO LEFT KNEE EFFUSION AND UTI. CM REVIEWED CHART AND SPOKE WITH CARE TEAM. CM MET WITH PT AT BEDSIDE THIS DAY. PT APPEARED TO BE A&O X4. CM ROLE INTRODUCED. PT INDICATED SHE LIVES AT [facility] AND HAD USED A WC TO ASSIST WITH MOBILITY CAP AND HAT PRODUCTION SUPERVISOR. PT INDICATED SHE HAD OP THERAPY THROUGH [facility] IN THE PAST AT [facility] AND HAD [facility] UPON LAST DISCHARGE. PT INDICATED THAT AT BASELINE SHE HAD BEEN ABLE TO TRANSFER HERSELF TO AND FROM . PT INICATED THAT SHE IS INTERESTED IN SHORT TERM POST ACUTE CARE STAY AND THAT SHE HAD BEEN TO [facility] IN THE PAST AND WOULD BE RECEPTIVE TO GOING THERE IF NEEDED UPON DC. CM FOLLOWING REGARDING DC PLANNING.
[2021-04-27 19:42] VITALS: BP 107/60
[2021-04-28 06:18] LABS: HEMOGLOBIN 12.7 gm/dL (12.0-15.0); MCH 32.3 pg (26.0-34.0); MCHC 33.3 g/dL (28.0-37.0); RBC 3.92 mil/uL (4.20-5.00); RDW 14.5 % (10.5-14.5); WBC 6.5 thou/uL (4.0-11.0)
[2021-04-28 06:28] LABS: CREATININE 0.8 mg/dL (0.6-1.0); POTASSIUM 4.2 mmol/L (3.5-5.1)
[2021-04-28 07:15] VITALS: BP 138/82
--- NOTE | 2021-04-28 09:37 | NUR ---
ASSUMED PT CARE THIS AM. PT IS ALERT & ORIENTED X4. PT HAS IV SITE ON R AC. PT IS INCONTINENT OF BLADDER AND HAS EXTERNAL CATH IN PLACE. PT HAS BM THIS AM. PT HAS L KNEE IMMOBILIZER AND TARA WRAP. PT IS ON ROOM AIR. GIVEN MEDICATION WITH APPLE SAUCE. NO C/O OF PAIN, NAUSEA AND VOMITING THIS AM. WILL CONTINUE TO MONITOR PT. FOLLOW POC.
[2021-04-28 15:15] VITALS: BP 144/64
[2021-04-28 19:33] VITALS: BP 149/62
--- NOTE | 2021-04-28 21:43 | NUR ---
ASSESSMENT COMPLETED. PT IS DOING WELL. OBSERVED WATCHING TV AND FALLING ASLEEP ON AND OFF. DENIES PAIN. RIGHT KNEE WITH BAND AID. SCDS IN PLACE. EXTERNAL FEM CATHETER IN PLACE, ADEQUATE U/O NOTED.PT APPEARS TO BE IN NO DISTRESS. CALL LIGHT WITHIN REACH.
[2021-04-29 07:58] VITALS: BP 139/73
--- NOTE | 2021-04-29 13:46 | NUR ---
ASSUMED CARE OF PT AT 0700 THIS MORNING. PT HAD FALLEN AND INJURED LT KNEE. TENDERNESS TO LT KNEE ON PALPATION, SWELLING NOTED. PT HAS TROUBLE STANDING AND PIVOTING TO WC. PT IS ON PUREWIC DUE TO INABILITY TO GET TO BEDSIDE COMODE. ASSESSMENTS NOTED IN CHART AND OTHERWISE UNREMARKABLE. IV IN RT AC WITH SL. FALL PRECAUTIONS IN PLACE, CALL LIGHT AND OTHER NEEDS ARE WITHIN REACH. MEDS AND TX GIVEN NEEDED AND SCHEDULED. WILL MONITOR AND NOTE ANY CHANGES.
--- NOTE | 2021-04-29 14:38 | NUR ---
CONSULT FOR DR. WADSWORTH RECEIVED THIS DATE AND PATIENT INFORMATION REVIEWED BY JULIO FREDERICK NP WITH DR. WADSWORTH. PATIENT IS NOT A CANDIDATE FOR ACUTE REHAB. PATIENT DOES NOT MEET CRITERIA FOR ADMISSION TO . PATIENT'S NURSE, BURTON CALLED BY SUPERVISOR [employer] AND INFORMED OF ABOVE. NURSE TO INFORM ORDERING PHYSICIAN. THANK YOU FOR THIS CONSULT.
[2021-04-29 17:23] VITALS: BP 99/66
[2021-04-29 20:12] VITALS: BP 126/69
--- NOTE | 2021-04-30 03:06 | NUR ---
ASSUMED PT CARE AT 1905. PT IS ALERT AND ORIENTEDX4. PT IS PLEASANT AND COOPERATIVE. PT HAS AN EXTERNAL FEMALE CATHETER IN PLACE WHICH IS PATENT. PT IS TOLERATING RA. SCDS ARE IN PLACE. PT DID NOT VERBALIZE ANY CONCERNS AND NO VISIBLE SIGN OF DISTERESS WAS NOTED. FALL PRECAUTIONS IN PLACE WITH CALL LIGHT WITHIN REACH. WILL CONTINUE TO MONITOR.
--- NOTE | 2021-04-30 03:28 | NUR ---
I AGREE WITH THE NOTE AND ASSESSMENT OF ILNDA MONSIVAIS.
[2021-04-30 05:17] VITALS: BP 110/64
[2021-04-30 08:30] VITALS: BP 132/72
--- NOTE | 2021-04-30 11:14 | NUR ---
ON-GOING ASSESSMENT: CM REVIEWED CHART AND SPOKE WITH PATIENT AT THE BEDSIDE. PT PREFERS TO GO TO 5 IF ABLE AND IF NOT SHE PREFERS TO GO TO [facility] SHE HAS BEEN THERE IN THE PAST. CM SPOKE WITH [facility] WHO REPORTS THEY DO NOT FEEL PT HAS THE QUALIFYING DIAGNOSIS FOR ACUTE REHAB. CM FAXED REFERRAL TO [facility] AND NOTIFIED CALLI IN ADMISSIONS WHO IS REVIEWING. CHART COPY ORDERED.
--- NOTE | 2021-04-30 11:24 | NUR ---
ASSUMED CARE OF PT AT 0700 THIS MORNING. PT HAD NO CHANGE IN CARE SINCE LAST NIGHT. ASSESSMENTS CHARTED AND OTHERWISE UNREMARKABLE. PT IS WORKING WITH PHYS THPY AND OT AND WORKING ON PLACEMENT BY FUNERAL PLANNING COUNSELOR. PT'S IV WAS DC'D YESTERDAY AND A NEW ONE NOT RESTARTED DUE TO NO RX OR TX REQUIRING ONE. FALL PRECAUTIONS ARE IN PLACE. CALL LIGHT AND OTHER NEEDS ARE WITHIN REACH. MEDS AND TX GIVEN NEEDED AND SCHEDULED. WILL MONITOR AND NOTE ANY CHANGES.
[2021-04-30] MEDS ORDERED: HYDROCODON-ACE1 EAC7 PO (13:17)
[2021-04-30] MEDS ORDERED: TYLENOL ARTHRI650 MG PO (13:21)
== END 2021-04-30 16:12 | DRG 565 ==
LOC: ER 11:06 → 4S 12:37 → EROBS 12:37 → 4S 12:39
PROVIDERS: Nurse Practitioner Family; ADMIT Hospitalist; ATTEND Hospitalist
PROC: 0S9D3ZZ Drainage of Left Knee Joint, Percutaneous Approach (ICD-10-PCS; principal; 2021-04-28)
DX: M25.462 Effusion, left knee (principal); N39.0 Urinary tract infection, site not specified; M25.562 Pain in left knee; F32.9 Major depressive disorder, single episode, unspecified; G50.0 Trigeminal neuralgia; R53.81 Other malaise; G47.00 Insomnia, unspecified; Z90.49 Acquired absence of other specified parts of digestive tract; Z98.42 Cataract extraction status, left eye; Z98.41 Cataract extraction status, right eye; W18.39XA Other fall on same level, initial encounter; Y93.89 Activity, other specified; Y92.89 Other specified places as the place of occurrence of the external cause; Y99.8 Other external cause status
CPT/HCPCS: 10102